=== PATIENT | male | born 1960 | race Caucasian/White ===

== ENCOUNTER 2017-06-09 16:51 | Emergency (ER) | payer OTHER ==
[~2017-06-09] VITALS: Ht 188 cm; Wt 126.4 kg
[2017-06-09 16:52] VITALS: BP 170/102; PULSE 95; RESP 20; TEMP 98.8; O2SAT 92
--- NOTE | 2017-06-09 17:37 | RADRPT ---
EXAM DATE/TIME: 06/09/2017 17:26 [place] COMPARISON: No previous studies available for comparison. INDICATIONS : Cough for 2 months MEDICAL HISTORY : None. SURGICAL HISTORY : None. ENCOUNTER: Initial ACUITY: 2 months PAIN SCORE: 0/10 LOCATION: Bilateral chest FINDINGS: The cardiac silhouette is enlarged in transverse diameter. The lungs are hypoinflated but clear. No e ffusions are identified. CONCLUSION: 1. Cardiomegaly. No acute pulmonary disease. Asael Rojas MD on June 09, 2017 at 17:35 Board Certified Radiologist. This report was verified electronically.
[2017-06-09 17:39] LABS: AUTOMATED NEUTROPHIL # 3.2 TH/MM3 (1.8-7.7); BASOPHIL # 0.1 TH/MM3 (0-0.2); BASOPHIL % 2.3 % (0.0-2.0); EOSINOPHIL # 0.1 TH/MM3 (0-0.4); EOSINOPHIL % 1.3 % (0.0-4.0); HEMATOCRIT 45.2 % (39.0-51.0); HEMOGLOBIN 15.8 GM/DL (13.0-17.0); LYMPH % 37.9 % (9.0-44.0); LYMPHOCYTE # 2.4 TH/MM3 (1.0-4.8); MEAN CELL VOLUME 91.7 FL (80.0-100.0); MEAN CORPUSCULAR HEMOGLOBIN 32.1 PG (27.0-34.0); MEAN PLATELET VOLUME 9.2 FL (7.0-11.0); MONOCYTE # 0.6 TH/MM3 (0-0.9); NEUT % 49.5 % (16.0-70.0); PLATELET COUNT 210 TH/MM3 (150-450); RED BLOOD COUNT 4.92 MIL/MM3 (4.50-5.90); RED CELL DISTRIBUTION WIDTH 12.8 % (11.6-17.2); WHITE BLOOD COUNT 6.4 TH/MM3 (4.0-11.0)
[2017-06-09 17:44] LABS: BILIRUBIN, URINE NEG (NEG); BLOOD, URINE NEG (NEG); GLUCOSE,URINE 1000 mg/dL (NEG); KETONE, URINE 10 mg/dL (NEG); NITRITE,URINE NEG (NEG); URINE COLOR LIGHT-YELLOW (YELLW/STRAW); URINE LEUKOCYTE ESTERASE NEG (NEG)
[2017-06-09 17:45] VITALS: BP 141/93; PULSE 102; RESP 20; O2SAT 94
[2017-06-09] MEDS ORDERED: ATEN25TA PO (17:49)
[2017-06-09] MEDS ORDERED: METF500T PO (17:49)
[2017-06-09] MEDS ORDERED: OXYC1CAP PO (17:49)
[2017-06-09] MEDS ORDERED: TRAM50TA PO (17:49)
[2017-06-09] MEDS ORDERED: LEVO25TA4 PO (17:49)
[2017-06-09 18:08] LABS: ALBUMIN 3.8 GM/DL (3.4-5.0); AST (GOT) 8 U/L (15-37); BICARBONATE 23.1 MEQ/L (21.0-32.0); BLOOD UREA NITROGEN 23 MG/DL (7-18); CALCIUM 9.5 MG/DL (8.5-10.1); CHLORIDE 96 MEQ/L (98-107); CREATININE 1.28 MG/DL (0.60-1.30); GLOMERULAR FILTRATION RATE 59 ML/MIN (>89); SODIUM (NA) 129 MEQ/L (136-145)
[2017-06-09 18:14] LABS: ALKALINE PHOSPHATASE 153 U/L (45-117); ALT (GPT) 47 U/L (12-78); TOTAL BILIRUBIN ADULT 0.5 MG/DL (0.2-1.0); TOTAL PROTEIN 7.7 GM/DL (6.4-8.2)
[2017-06-09 18:17] LABS: GLUCOSE,RANDOM 546 MG/DL (74-106)
--- NOTE | 2017-06-09 18:20 | PD ---
HPI Chief Complaint: Diabetic Time Seen by Provider: 18:04 Travel History International Travel<30 days: No Contact w/Intl Traveler<30days: No Traveled to known affect area: No History of Present Illness HPI 56-year-old male presents to emergency department complaining of increased thirst & urination for 2 weeks. Patient states that he was recently diagnosed with diabetes and is on metformin. Patient states that he is compliant with the medication but does not check his blood sugar regularly. In addition, patient states that he has had a and irritating, dry cough and cold-like symptoms since after Thanksgiving. Patient denies headache, trauma, chest pain or shortness of breath. Patient is a cardiac history with an [place] in 2008. Patient does not take blood thinners except for baby aspirin daily. Patient is here today because he tried to get an appointment with his primary care physician [facility] the [facility] but they were unavailable until July. The [facility] advised him to come to the emergency department for evaluation since he was unable to see them until July. PFSH Past Medical History Cardiovascular Problems: Yes (HTN) Diabetes: Yes Patient Takes Glucophage: Yes (METFORMIN 06/09/17 @ 0500) Diminished Hearing: No Endocrine: Yes (HX ELEVATED ESTROGEN, GYNECOMASTIA) Hypertension: Yes Musculoskeletal: Yes (CHRONIC BACK/NECK, ANKLE PAIN) Thyroid Disease: Yes Tetanus Vaccination: Unknown Influenza Vaccination: No Past Surgical History Genitourinary Surgery: Yes (VASECTOMY) Neurologic Surgery: Yes (NECK FX, PLATE AND SCREWS PLACED) Other Surgery: Yes (GYNECOMASTIA, LYMPH NODE REMOVED FROM R GROIN) Social History Alcohol Use: Yes (RARELY) Tobacco Use: No (QUIT 2 WEEKS AGO) Substance Use: No Allergies-Medications (Allergen,Severity, Reaction): Coded Allergies: No Known Allergies (Unverified , 06/09/17) Reported Meds & Prescriptions Reported Meds & Active Scripts Active Metformin (Metformin HCl) 1,000 Mg Tab 1,000 Mg PO BIDPC Reported Tramadol (Tramadol HCl) 50 Mg Tab 50 Mg PO Q4H PRN Oxycodone (Oxycodone HCl) 5 Mg Cap 5 Mg PO Q4H PRN Atenolol 25 Mg Tab 12.5 Mg PO DAILY Metformin (Metformin HCl) 500 Mg Tab 500 Mg PO DAILY With a meal Levothyroxine (Levothyroxine Sodium) 25 Mcg Tab 25 Mcg PO DAILY Review of Systems Except as stated in HPI: all other systems reviewed are Neg Physical Exam Narrative GENERAL: Well-nourished in no apparent distress SKIN: Focused skin assessment warm/dry. No rashes. HEAD: Atraumatic. Normocephalic. EYES: Pupils equal and round. No scleral icterus. No injection or drainage. ENT: No nasal bleeding or discharge. Mucous membranes pink and moist. No pharyngeal injection, no tonsillar hypertrophy or exudates NECK: Trachea midline. No JVD. No lymphadenopathy CARDIOVASCULAR: Regular rate and rhythm. No murmur appreciated. RESPIRATORY: No accessory muscle use. Clear to auscultation. Breath sounds equal bilaterally. GASTROINTESTINAL: Abdomen soft, nondistended. Mild TTP epigastric region. MUSCULOSKELETAL: No obvious deformities. No clubbing. No cyanosis. No edema. NEUROLOGICAL: Awake and alert. No obvious cranial nerve deficits. Motor grossly within normal limits. Normal speech. PSYCHIATRIC: Appropriate mood and affect; insight and judgment normal. Data Data Last Documented VS Vital Signs Date Time Temp Pulse Resp B/P (MAP) Pulse Ox O2 Delivery O2 Flow Rate FiO2 06/09/17 22:34 06/09/17 22:18 72 18 95 Room Air 06/09/17 16:52 98.8 Orders Orders Comprehensive Metabolic Panel (06/09/17 17:01) Complete Blood Count With Diff (06/09/17 17:01) Urinalysis - C+S If Indicated (06/09/17 17:01) Chest, Pa & Lat (06/09/17 ) Blood Glucose (06/09/17 17:01) Beta Hydroxybutyrate (Acetone) (06/09/17 17:03) Insulin Human Regular Inj (Novolin R Inj (06/09/17 18:30) Insulin Aspart Inj (Novolog Inj) (06/09/17 18:30) Sodium Chlor 0.9% 1000 Ml Inj (Ns 1000 M (06/09/17 18:30) Influenzae A/B Antigen (06/09/17 18:30) Blood Glucose (06/09/17 18:42) Sodium Chlor 0.9% 1000 Ml Inj (Ns 1000 M (06/09/17 20:45) Ed Discharge Order (06/09/17 22:24) Labs Laboratory Tests Test 06/09/17 17:16 White Blood Count 6.4 TH/MM3 Red Blood Count 4.92 MIL/MM3 Hemoglobin 15.8 GM/DL Hematocrit 45.2 % Mean Corpuscular Volume 91.7 FL Mean Corpuscular Hemoglobin 32.1 PG Mean Corpuscular Hemoglobin Concent 35.0 % Red Cell Distribution Width 12.8 % Platelet Count 210 TH/MM3 Mean Platelet Volume 9.2 FL Neutrophils (%) (Auto) 49.5 % Lymphocytes (%) (Auto) 37.9 % Monocytes (%) (Auto) 9.0 % Eosinophils (%) (Auto) 1.3 % Basophils (%) (Auto) 2.3 % Neutrophils # (Auto) 3.2 TH/MM3 Lymphocytes # (Auto) 2.4 TH/MM3 Monocytes # (Auto) 0.6 TH/MM3 Eosinophils # (Auto) 0.1 TH/MM3 Basophils # (Auto) 0.1 TH/MM3 CBC Comment DIFF FINAL Differential Comment Urine Color LIGHT-YELLOW Urine Turbidity CLEAR Urine pH 5.0 Urine Specific [place] 1.028 Urine Protein NEG mg/dL Urine Glucose (UA) 1000 mg/dL Urine Ketones 10 mg/dL Urine Occult Blood NEG Urine Nitrite NEG Urine Bilirubin NEG Urine Urobilinogen LESS THAN 2.0 MG/DL Urine Leukocyte Esterase NEG Urine RBC LESS THAN 1 /hpf Urine WBC LESS THAN 1 /hpf Microscopic Urinalysis Comment CULT NOT INDICATED Blood Urea Nitrogen 23 MG/DL Creatinine 1.28 MG/DL Random Glucose 546 MG/DL Total Protein 7.7 GM/DL Albumin 3.8 GM/DL Calcium Level 9.5 MG/DL Alkaline Phosphatase 153 U/L Aspartate Amino Transf (AST/SGOT) 8 U/L Alanine Aminotransferase (ALT/SGPT) 47 U/L Total Bilirubin 0.5 MG/DL Sodium Level 129 MEQ/L Potassium Level 3.9 MEQ/L Chloride Level 96 MEQ/L Carbon Dioxide Level 23.1 MEQ/L Anion Gap 10 MEQ/L Estimat Glomerular Filtration Rate 59 ML/MIN B-Hydroxybutyrate 1.07 MMOL/L [facility] Medical Decision Making Medical Screen Exam Complete: Yes Emergency Medical Condition: Yes Differential Diagnosis Uncontrolled diabetes mellitus, hyperglycemia, DKA, HHS, Narrative Course 56-year-old male presents to emergency department complaining of increased thirst & urination for 2 weeks. Patient states that he was recently diagnosed with diabetes and is on metformin. Patient states that he is compliant with the medication but does not check his blood sugar regularly. In addition, patient states that he has had a and irritating, dry cough and cold-like symptoms since after Thanksgiving. Patient denies headache, trauma, chest pain or shortness of breath. Patient is a cardiac history with an [place] in 2008. Patient does not take blood thinners except for baby aspirin daily. Patient is here today because he tried to get an appointment with his primary care physician at the [facility] but they were unavailable until July. [facility] advised him to come to the emergency department for evaluation since he was unable to see them until July. Vital Signs Date Time Temp Pulse Resp B/P (MAP) Pulse Ox O2 Delivery O2 Flow Rate FiO2 06/09/17 19:00 79 16 145/74 (97) 96 Room Air 06/09/17 17:45 102 20 141/93 (109) 94 Room Air 06/09/17 16:52 98.8 95 20 170/102 (124) 92 Room Air Laboratory Tests Test 06/09/17 17:16 White Blood Count 6.4 TH/MM3 Red Blood Count 4.92 MIL/MM3 Hemoglobin 15.8 GM/DL Hematocrit 45.2 % Mean Corpuscular Volume 91.7 FL Mean Corpuscular Hemoglobin 32.1 PG Mean Corpuscular Hemoglobin Concent 35.0 % Red Cell Distribution Width 12.8 % Platelet Count 210 TH/MM3 Mean Platelet Volume 9.2 FL Neutrophils (%) (Auto) 49.5 % Lymphocytes (%) (Auto) 37.9 % Monocytes (%) (Auto) 9.0 % Eosinophils (%) (Auto) 1.3 % Basophils (%) (Auto) 2.3 % Neutrophils # (Auto) 3.2 TH/MM3 Lymphocytes # (Auto) 2.4 TH/MM3 Monocytes # (Auto) 0.6 TH/MM3 Eosinophils # (Auto) 0.1 TH/MM3 Basophils # (Auto) 0.1 TH/MM3 CBC Comment DIFF FINAL Differential Comment Urine Color LIGHT-YELLOW Urine Turbidity CLEAR Urine pH 5.0 Urine Specific [place] 1.028 Urine Protein NEG mg/dL Urine Glucose (UA) 1000 mg/dL Urine Ketones 10 mg/dL Urine Occult Blood NEG Urine Nitrite NEG Urine Bilirubin NEG Urine Urobilinogen LESS THAN 2.0 MG/DL Urine Leukocyte Esterase NEG Urine RBC LESS THAN 1 /hpf Urine WBC LESS THAN 1 /hpf Microscopic Urinalysis Comment CULT NOT INDICATED Blood Urea Nitrogen 23 MG/DL Creatinine 1.28 MG/DL Random Glucose 546 MG/DL Total Protein 7.7 GM/DL Albumin 3.8 GM/DL Calcium Level 9.5 MG/DL Alkaline Phosphatase 153 U/L Aspartate Amino Transf (AST/SGOT) 8 U/L Alanine Aminotransferase (ALT/SGPT) 47 U/L Total Bilirubin 0.5 MG/DL Sodium Level 129 MEQ/L Potassium Level 3.9 MEQ/L Chloride Level 96 MEQ/L Carbon Dioxide Level 23.1 MEQ/L Anion Gap 10 MEQ/L Estimat Glomerular Filtration Rate 59 ML/MIN B-Hydroxybutyrate 1.07 MMOL/L Insulin administered SQ. Pt monitored for BG improvement for a couple of hours. 3L NS administered. His last POC BG was 270. Pt remained stable in the ED. He would like to go home. Pt will be discharged with metformin 1000mg BID. Advised that if his symptoms worsened or persisted to return to the ED. I recommended he follow up with physician [facility] due to [facility] limited accessibility. [employer]* information given. Avoid sugar, pasta, juice, or soda intake. Educated patient on the dangers of uncontrolled diabetes. Pt agreed this would be a good idea. States he will if symptoms worsened or persisted. Diagnosis Primary Impression: Uncontrolled diabetes mellitus Qualified Codes: E11.65 - Type 2 diabetes mellitus with hyperglycemia Additional Impressions: Glycosuria Hyperglycemia Referrals: Primary Care Physician Additional Instructions: Increased your metformin dose to 1000 mg twice a day. Avoid starches, sugars, or anything that'll cause an increase in her blood sugars. Continue to increase your water intake to flush out the sugar. If your symptoms worsen or persist, return to the emergency department. Scripts Metformin (Metformin) 1,000 Mg Tab 1000 MG PO BIDPC for Blood Sugar Management, #30 TAB 0 Refills Prov: Mary Beth Encarnacion 06/09/17 Disposition: 01 DISCHARGE HOME Condition: Stable Mary Beth Encarnacion Jun 09, 2017 18:20
[2017-06-09] MEDS ORDERED: SODIUM CHLOR 0.9% 1000 ML INJ 1,000 ML IV ONE ×2 (18:30→20:45)
[2017-06-09] MEDS ORDERED: INSULIN ASPART 1,000 UNITS/10 ML VIAL SQ ONE (18:30)
[2017-06-09] MEDS ORDERED: INSULIN HUMAN REGULAR 1,000 UNITS/10 ML VIAL IV PUSH ONE (18:30)
--- NOTE | 2017-06-09 18:54 | PD ---
Data Data Last Documented VS Vital Signs Date Time Temp Pulse Resp B/P (MAP) Pulse Ox O2 Delivery O2 Flow Rate FiO2 06/09/17 17:45 102 20 141/93 (109) 94 Room Air 06/09/17 16:52 98.8 Orders Orders Comprehensive Metabolic Panel (06/09/17 17:01) Complete Blood Count With Diff (06/09/17 17:01) Urinalysis - C+S If Indicated (06/09/17 17:01) Chest, Pa & Lat (06/09/17 ) Blood Glucose (06/09/17 17:01) Beta Hydroxybutyrate (Acetone) (06/09/17 17:03) Insulin Human Regular Inj (Novolin R Inj (06/09/17 18:30) Insulin Aspart Inj (Novolog Inj) (06/09/17 18:30) Sodium Chlor 0.9% 1000 Ml Inj (Ns 1000 M (06/09/17 18:30) Influenzae A/B Antigen (06/09/17 18:30) Blood Glucose (06/09/17 18:42) Labs Laboratory Tests Test 06/09/17 17:16 White Blood Count 6.4 TH/MM3 Red Blood Count 4.92 MIL/MM3 Hemoglobin 15.8 GM/DL Hematocrit 45.2 % Mean Corpuscular Volume 91.7 FL Mean Corpuscular Hemoglobin 32.1 PG Mean Corpuscular Hemoglobin Concent 35.0 % Red Cell Distribution Width 12.8 % Platelet Count 210 TH/MM3 Mean Platelet Volume 9.2 FL Neutrophils (%) (Auto) 49.5 % Lymphocytes (%) (Auto) 37.9 % Monocytes (%) (Auto) 9.0 % Eosinophils (%) (Auto) 1.3 % Basophils (%) (Auto) 2.3 % Neutrophils # (Auto) 3.2 TH/MM3 Lymphocytes # (Auto) 2.4 TH/MM3 Monocytes # (Auto) 0.6 TH/MM3 Eosinophils # (Auto) 0.1 TH/MM3 Basophils # (Auto) 0.1 TH/MM3 CBC Comment DIFF FINAL Differential Comment Urine Color LIGHT-YELLOW Urine Turbidity CLEAR Urine pH 5.0 Urine Specific [place] 1.028 Urine Protein NEG mg/dL Urine Glucose (UA) 1000 mg/dL Urine Ketones 10 mg/dL Urine Occult Blood NEG Urine Nitrite NEG Urine Bilirubin NEG Urine Urobilinogen LESS THAN 2.0 MG/DL Urine Leukocyte Esterase NEG Urine RBC LESS THAN 1 /hpf Urine WBC LESS THAN 1 /hpf Microscopic Urinalysis Comment CULT NOT INDICATED Blood Urea Nitrogen 23 MG/DL Creatinine 1.28 MG/DL Random Glucose 546 MG/DL Total Protein 7.7 GM/DL Albumin 3.8 GM/DL Calcium Level 9.5 MG/DL Alkaline Phosphatase 153 U/L Aspartate Amino Transf (AST/SGOT) 8 U/L Alanine Aminotransferase (ALT/SGPT) 47 U/L Total Bilirubin 0.5 MG/DL Sodium Level 129 MEQ/L Potassium Level 3.9 MEQ/L Chloride Level 96 MEQ/L Carbon Dioxide Level 23.1 MEQ/L Anion Gap 10 MEQ/L Estimat Glomerular Filtration Rate 59 ML/MIN B-Hydroxybutyrate 1.07 MMOL/L MDM Supervised Visit with [facility]ARI: Yes Narrative Course The history, exam, and medical decision-making in the associated mid-level provider note were completed with my assistance. I reviewed and agree with the findings presented. I attest that I had a [id number] encounter with the patient on the same day, and personally performed and documented my assessment and findings in the medical record. *My assessment and Findings: 56-year-old man, cough cold symptoms for a week or so, vision changes polyuria polydipsia, elevated blood sugar. Patient only on 500 metformin daily. She looks otherwise well. Give IV fluid hydration, insulin, increased metformin, [facility] Diagnosis Primary Impression: Uncontrolled diabetes mellitus Qualified Codes: E11.65 - Type 2 diabetes mellitus with hyperglycemia Additional Impressions: Glycosuria Hyperglycemia Condition: Stable Jose Maria Jimenez MD Jun 09, 2017 18:54
[2017-06-09 19:00] VITALS: BP 145/74; PULSE 79; RESP 16; O2SAT 96
[2017-06-09 22:18] VITALS: BP 144/87; PULSE 72; RESP 18; O2SAT 95
[2017-06-09] MEDS ORDERED: METF1000 PO (22:23)
== END 2017-06-09 22:47 | disposition home or self-care (01) ==
LOC: NEPC 16:51
DX: E11.65 Type 2 diabetes mellitus with hyperglycemia (principal); R81 Glycosuria
CPT/HCPCS: 71046; 80053; 81001; 82010; 85025; 96360; 96361; 96372; 99284; J1815; J7030